=== PATIENT | female | born 1940 | race Caucasian/White ===

== ENCOUNTER 2017-03-27 05:57 | Inpatient (IN) | payer BC, MEDICARE ==
[2017-03-09 13:36] VITALS: BMI 31.4
[2017-03-27] MEDS ORDERED: EPINEPHrine 1:1000 Nasal Sol(30mL) ONE (07:38)
[2017-03-27] MEDS ORDERED: ceFAZolin IV 2 gm in Dextrose 2 GM/50 ML BAG IVPB ONE (07:38)
[2017-03-27] MEDS ORDERED: Rocuronium 10 mg/ml (10 ml) ONE (08:36)
[2017-03-27] MEDS ORDERED: Etomidate 20 mg/10ml Inj IV ONE (08:36)
[2017-03-27] MEDS ORDERED: Phenylephrine 10 mg/ml Inj ONE (08:37)
[2017-03-27] MEDS ORDERED: ceFAZolin IV 1 gm in Dextrose 1 GM/50 ML BAG IVPB ONE (08:39)
[2017-03-27] MEDS ORDERED: Neostigmine Methylsulfate 3mg/3ml Syringe IV ONE (11:46)
[2017-03-27] MEDS ORDERED: HYDROmorphone 0.5 mg/0.5 ml ISec ONE (12:09)
[2017-03-27] MEDS ORDERED: Lactated Ringer's 1,000 ML IV SCH (12:15)
[2017-03-27] MEDS: HYDROmorphone 0.5 mg/0.5 ml ISec IVP PRN ×2 (12:17→12:35)
[2017-03-27] MEDS ORDERED: Bupivacaine HCl 0.25% PF (10 ml) Inj ONE ×2 (12:50)
[2017-03-27] MEDS ORDERED: Lidocaine Hydrochloride 5 ML INJ ONE (12:51)
--- NOTE | 2017-03-27 13:08 | PCM.ANESB1 ---
Interscalene Block - Brachial Plexus Date of Procedure: 03/27/17 Anesthesiologist: francisca Pre-Procedure Diagnosis: right rotator cuff repair Post-Procedure Diagnosis: same Procedure Performed: Interscalene Block of Brachial Plexus Right - Procedure Interscalene Block of Brachial Plexus: This procedure was explained to the patient that it is for post-operative pain management. Consent was obtained after a thorough discussion with the patient regarding the benefits and possible complications of local anesthetic block of the Brachial Plexus at the Interscalene area. The patient was brought to the Operating Room and standard monitors were applied. Time out was held with the circulating nurse to confirm the correct surgery and appropriate block. After applying Oxygen by nasal cannula and administering IV Sedation, the patient's head was gently rotated away from the operative shoulder and the anterior scalene groove was carefully palpated. The ultrasound transducer was then applied to the skin in the transverse plane and the brachial plexus was visualized lateral to the carotid artery and in between the anterior and middle scalene muscles. After identification,the anterior lateral portion of the neck was prepped with Betadine solution three times and Lidocaine 1% was injected subcutaneously for topical analgesia. At this point, a # 22 gauge Stimuplex 2 inches insulated needle was inserted into the interscalene groove and directed in a caudal and midline direction. The needle was inserted lateral to the ultrasound transducer in-plane towards the brachial plexus in a [id number] direction. Needle advancement was performed carefully under direct ultrasound visualization. Nerve stimulator was used and twitched of the affected extremity including the hand brachialis muscles, biceps and the deltoid was obtained at a current of __0.4___MA. After repeated negative aspiration,___5__cc of_0.25%____,___Bupivacaine were injected and this was followed with _25____cc of __0.25___% __bupivacaine__ . Under ultrasound guidance the local anesthetics were observed surrounding the roots of the brachial plexus. The needle was removed intact and sterile dressing was applied. The patient had stable vital signs, was conscious and in no apparent distress. The patient tolerated the interscalene block of the bracheal plexus well with stable vital signs and was prepared for subsequent surgery.
[2017-03-27] MEDS ORDERED: Lactated Ringer's 1,000 ML IV ONE ×3 (13:30→21:30)
--- NOTE | 2017-03-27 17:10 | PCM.SURG1 ---
Surgeon's Initial Post Op Note - Surgeon's Notes Surgeon: Parish Lehman MD Stud Setter: Barry Díaz PA-C Type of Anesthesia: General Endo, Block Regional Pre-Operative Diagnosis: Right shoulder #1 Rotator Cuff Tear (high grade partial tears IS & SS). #2 SLAP tear. #3 Biceps tenosynovits & instability. # 4 SA Bursitis. #5 Subscap partial tear Operative Findings: Right shoulder: #1 Rotator Cuff Tear (partial tears w/ tendonopathy IS/SS, 1.5 cm full thickness tear SS). #2 SLAP tear. #3 Bankart tear w/ anterior instability. #4 Biceps tenosynovits & instability/ partial tear. #5 SA Bursitis. #6 Subscap partial tear. #7 multiple loose bodies. #8 synovitis. #9 chondromalacia humeral head & glenoid Post-Operative Diagnosis: Right shoulder: #1 Rotator Cuff Tear (partial tears w / tendonopathy IS/SS, 1.5 cm full thickness tear SS). #2 SLAP tear. #3 Bankart tear w/ anterior instability. #4 Biceps tenosynovits & instability/ partial tear. #5 SA Bursitis. #6 Subscap partial tear. #7 multiple loose bodies. #8 synovitis. #9 chondromalacia humeral head & glenoid Operation Performed: Right Shoulder: #1 Open Biceps LH Tenodesis. #2 Arthroscopic Rotator Cuff Repair. #3 Arthroscopic SLAP repair. #4 Arthroscopic Bankart repair/ anterior stabilization/ capsulorraphy. #5 Arthroscopic Extensive Debridement. #6 Arthroscopic Subacromial Decompression. #7 Arthroscopic chondroplasty humeral head & glenoid. #8 Arthroscopic removal multiple loose bodies, largest over 3 cm in size through accessory incision. #9 Arthroscopic PRP injection Specimen/Specimens Removed: Specimen= multiple loose bodies, largest greater than 3cm in size. complications= none. Implants= Arthrex #1 4.75 biocomposite swivel Lock anchor and fibertape for RTC repair, #2 2.9 mm biocomposite Push Lock anchor and labral tape for SLAP/Bankart/ anterior stabilization/ capsulorrhaphy repair, #3 7mm biocomposite biceps tenodesis screw for biceps tenodesis Estimated Blood Loss: EBL {In ML}: 10 Blood Products Given: N/A Drains Used: No Drains Post-Op Condition: Good Date of Surgery/Procedure: 03/27/17 Time of Surgery/Procedure: 12:00
[2017-03-27 18:20] VITALS: RESP 20
[2017-03-28] MEDS: Oxycodone/Acetaminophen 5/325 mg Tab PO PRN ×3 (01:03→16:02)
--- NOTE | 2017-03-28 05:35 | OP ---
PROCEDURE DATE: 03/27/2017 PREOPERATIVE DIAGNOSES: 1 . Right shoulder rotator cuff tear (high grade partial tears of infraspinatus and supraspinatus). 2. Superior labrum anterior and posterior labral tear. 3. Biceps tenosynovitis and instability. 4. Subacromial bursitis. 5. Subscapularis partial tear. POSTOPERATIVE DIAGNOSES: 1 . Right shoulder rotator cuff tear (partial tears and tendinopathy of infraspinatus and supraspinatus, 1.5 cm full thickness tear of supraspinatus). 2. Superior labrum anterior and posterior tear complex starting at the 10 o'clock position extending to the 3 o'clock position. 3. Bankart tear with anterior instability (attenuated anterior capsule with subluxation of anterior inferior of humeral head , Bankart labral tear starting at 3 o'clock position extending down to the 6 o'clock position at the anterior inferior labrum). 4. Biceps tenosynovitis and instability with high-grade partial tearing. 5. Subacromial bursitis and impingement. 6. Subscapularis partial tear. 7. Multiple loose bodies (largest of the loose bodies measuring greater than 3 cm in width). 8. Extensive synovitis. 9. Chondromalacia of humeral head and glenoid. PROCEDURES: 1. Right shoulder open biceps long head tendon tenodesis. 2. Arthroscopic rotator cuff repair. 3. Arthroscopic superior labrum anterior and posterior repair. 4. Arthroscopic Bankart repair/anterior stabilization/capsulorrhaphy. 5. Arthroscopic extensive debridement. 6. Arthroscopic subacromial decompression with acromioplasty. 7. Arthroscopic chondroplasty of the humeral head and glenoid. 8. Arthroscopic removal of loose bodies, largest loose body measuring over 3 cm in size, removed through accessory incision. 9. Arthroscopic PRP injection. SURGEON: Parish Lehman MD MATH INTERVENTIONIST: Colleen Díaz PA-C. JUSTIFICATION FOR MATH INTERVENTIONIST: Colleen Díaz is a certified physician chiropractor assistant, whose presence was an absolute necessity for successful completion of the procedure as she provided skilled surgical assistance with positioning of patient, positioning of extremity, management of surgical field, retraction of neurovascular structures, preparation of glenoid including drilling and passage of suture and placement of fixation anchors for superior labrum anterior and posterior repair, passage of suture and placements of anchors and glenoid for fixation of capsulorrhaphy/Bankart repair, passage of suture of preparation of humeral head for placement of anchors for rotator cuff repair, management of arthroscopic equipments for extensive debridement/synovectomy/chondroplasty and subacromial decompression with acromioplasty, retraction of neurovascular structures and preparation of proximal humerus shaft for biceps tenodesis as well as surgical dissection and retrieving biceps tendon as well as proximal biceps tendon preparation, placement of suture, and placement of biceps tenodesis screw and tenodesis fixation, wound closure, placement and fitting of shoulder immobilizer sling. Colleen Díaz was present for the entire case, was an absolute necessity for successful completion of the procedure. SPECIMENS: Multiple loose bodies, sent to pathology with largest loose body measuring greater than 3 cm in size. COMPLICATIONS: None. IMPLANTS: 1. Arthrex 4.75-mm BioComposite and FiberTape rotator cuff repair. 2. Arthrex 2.9-mm BioComposite PushLock anchors in labrum for superior labrum anterior and posterior repair/Bankart repair/anterior stabilization/capsulorrhaphy repair. 3. Arthrex 7-mm BioComposite biceps tenodesis screw for biceps tenodesis. ESTIMATED BLOOD LOSS: 10 mL. DRAINS: None. COMPLICATIONS: None. DISPOSITION: The patient was extubated and transferred to PACU in stable condition and tolerated procedure well. INDICATIONS FOR SURGERY: The patient is a 77-year-old female with past medical history significant for hypertension, hypercholesterolemia, diabetes, coronary artery disease, who presented to the office under my care back in 10/05/2014 for other orthopedic complaints on her followup visit on the office on 09/22/2016. She presented with new onset/acute right shoulder pain that began two months previously. X-rays taken in the office did not show obvious signs of significant degenerative joint disease with good overall alignment and mild signs of impingement. She underwent cortisone mixture injections to the bicipital groove and subacromial space on 09/22/2016 in the office, which resulted in near complete resolution of her pain immediately. She was referred to physical therapy and referred to get an MR arthrogram of the right shoulder. She was compliant with physical therapy, antiinflammatory medication in the form of Mobic, antiinflammatory cream/compound pain cream. Right shoulder MR arthrogram done at [facility] on 10/22/2016 was read as: 1. Full thickness/partial with tear of the supraspinatus tendon measuring 1 cm in width with diffuse tendinosis and sprain of the remainder of the tendon. 2. High grade partial tear of the infraspinatus tendon. 3. Partial tear of the subscapularis tendon. 4. Tear of the superior labrum from 10 o'clock to 1 o'clock positions. On my review of the MR arthrogram, I know that there was significant signal change especially at the intraarticular portion of the biceps tendon as well as the biceps tendon within the groove. I also noted that there was significant labral signal changes on the MR arthrogram at the anterior inferior labrum as well as the superior labrum anterior and posterior region. On her followup in the office, she stated that she was progressing well with physical therapy and the initial injection was providing her with some good pain relief. She continued with physical therapy and followed up in the office on 02/03/2017. At that point in time, the pain had returned significantly at the right shoulder with significant dysfunction, pain at night, inability to perform any overhead activity and overall a significant negative impact on her quality of life. She underwent cortisone mixture injection once again in the office on 02/03/2017 to the bicipital groove and subacromial space with near complete resolution of her pain once again in the office. She continued with physical therapy and on that day, she started to discuss possible surgical intervention. She followed up in the office on 03/19/2017 for her preoperative discussion and to discuss surgery in detail. At her previous visit, she has already been indicated for right shoulder arthroscopic rotator cuff repair/superior labrum anterior and posterior repair, possible capsulorrhaphy or Bankart repair, biceps tenodesis, extensive debridement, subacromial decompression, and all related indicated procedures including platelet rich plasma injection. She watched surgical animation videos and diagnosis animation videos and stated that she had a good understanding of her diagnosis as well as the procedure to be done. I spent a long time discussing the risks, benefits, and alternatives of the procedure with the risks including but not limited to infection, neurovascular damage, need for further surgery, failure of repair, failure implants, advanced chondrolysis and degenerative wear, development of chronic pain and disability, development of stiffness, development of blood clots including DVT and PE, inability to return to presurgery levels of activity, anesthesia reactions, cardiopulmonary complications. After answering all of her questions, she stated that she understood the risks and wished to proceed with surgery. I reviewed with length with her the need for compliance with the postoperative rehab protocol and she stated that she understood the need for compliance and would adhere to the program to maximize the chances of her having a successful outcome after surgery. She was referred to her primary care physician and nuclear medicine technician and obtained both cardiac and medical clearance and the procedure was scheduled on 03/27/2017 at [facility] (Formerly [facility]). PROCEDURE IN DETAIL : The patient was identified in the preoperative holding area and the right shoulder was marked for surgery. Once again, as described above, the risks, benefits, and alternatives of the procedure were discussed at length with the patient and informed consent was obtained. After a brief discussion with the Anesthesia staff, perioperative IV antibiotics in the form of 2 g Ancef was administered and the patient was taken to the operating room and placed in a well-padded operating room table with all bony prominences and superficial neurovascular structures well-padded. The operating room table had the beach chair position or in the supine position. An initial time-out was done with the surgeon, anesthesia staff, and OR staff, and all are in agreement with the patient, procedure to be done and extremity to be operated on. General anesthesia was administered without difficulty or complication. Examination under anesthesia was then carried out. Right shoulder with full range of motion compared to contralateral arm, there was some subacromial crepitus, there was significant sulcus sign and anterior inferior instability especially with external rotation and abduction, the biceps tendon was palpated to be dislocating out of the bicipital groove as well. Skin is intact, no swelling, no warmth, no erythema. Continuation of procedure with the help of anesthesia staff, monitoring hemodynamic status. The patient was slowly brought into the upright position on the beach chair position while monitoring her blood pressure and heart rate to determine that she can tolerate the upright position at 45 degrees and then finally in the full upright position. After anesthesia staff confirmed that she was hemodynamically stable, we proceeded with prepping and draping of the right shoulder after her head and neck alignment was confirmed to be in neutral position to the satisfaction of anesthesia staff and she was secured to the beach chair position. Once the right upper extremity was prepped and draped in standard sterile fashion and connected to the spider extremity bernard, a final time-out was done with the surgeon, anesthesia staff, and OR staff, and all are in agreement with the patient, procedure to be done and extremity to be operated on. Posterior portal was created with stab incision to skin down to the subcutaneous tissue down to the level of the capsule after the glenohumeral joint was insufflated with 50 mL of normal saline. Blunt arthroscopic trocar and cannula were inserted into the glenohumeral joint. Insufflation with arthroscopic fluids was begun and the arthroscopic camera was inserted into the glenohumeral joint. With the use of spinal needle localization, the anterior superior portal was identified at the rotator interval and created with stab incision through skin down to subcutaneous tissue down to the level of the capsule. An accessory cannula was inserted and the joint was copiously irrigated for better visualization and removal of debris. Diagnostic arthroscopy was then carried out with the use of an arthroscopic probe. Attention was first turned towards the axillary pouch, where there was significant loose bodies that appeared to be displaced chondral fragments with the largest fragment measuring over 3 cm. Loose bodies totalled approximately eight in total, but could have been more. Attention was then turned towards the anterior shoulder where the subscapularis tendon exhibited partial tearing at the superior and anterior aspect that was not full thickness, but explained the biceps instability. There was significant synovitis and hypertrophic synovium lining the anterior and superior glenohumeral joint as well as the inferior axillary pouch. Attention then turned towards the biceps tendon that it appears to have high grade complex partial tearing close to the bicipital anchor with about 40 to 30% of the fibers actually intact. The biceps tendon also appeared to be unstable and subluxed anteriorly and not moving in continuity with external and internal rotation of the humeral head under anesthesia. Attention was then turned towards the labrum, where indeed, there was a complex type II superior labrum anterior and posterior tear extending from the 10 o'clock position to the 3 o'clock position, displaced completely from the glenoid rim. The biceps anchor was also displaced. At the anterior inferior aspect in the Bankart area from the 3 o'clock to 6 o'clock position, the labrum was also torn and displaced from the glenoid rim and detached. There was a positive drive through sign in the anterior and inferior subluxation of the humeral was evident. As we looked with the arthroscopic camera at the anterior aspect of the shoulder joint, there appeared to be attenuation and outpouching of the anterior capsule indicating significant anterior instability. We then evaluated the rotator cuff, which have had significant partial tearing and tendinopathy throughout most of the infraspinatus and supraspinatus, but at the anterior aspect of the supraspinatus, there is insertion of the greater tuberosity that did appear to be a full-thickness component with some remnant fibers holding on that measured approximately 1.5 cm in total width. Continuation of procedure with the use of arthroscopic shaver and radiofrequency ablation, an extensive debridement and synovectomy was carried out while maintaining good hemostasis. The complex tearing of the flap tear and Bankart tear were debrided down to a stable rim and indeed the tissue was of good enough quality for repair. With the use of a scissor and biceps tenotomy was carried out releasing the biceps tendon in its completion and then completed wit the arthroscopic shaver and radiofrequency ablation. Synovectomy was also completed inferiorly with good hemostasis achieved. With the use of graspers and the arthroscopic shaver, we are able to remove nearly all of the loose bodies, except for the rather large 3 cm loose body. After completion of all the intraarticular parts of the procedure through an accessory incision, we are able to remove the 3 cm loose body in its entirety and it was sent to pathology. As stated above, there was copious amounts of loose bodies all representing displaced chondral fragments. The humeral head and the glenoid displayed are grade 1 to 2 chondromalacia with displaced chondral fragments globally throughout the articulating surfaces above the humeral head and glenoid. With the use of an Arthrex suture passer, after the tissue was elevated and freed from the glenoid completely, we are able to start working on the anterior stabilization/capsulorrhaphy. The suture was passed through the redundant anterior capsule and inferior glenohumeral ligament, tightening up the anterior capsule, incorporating the labrum and the wire was advanced well passing the labral tap around the anterior inferior labrum at approximately 5 o'clock to 6 o'clock position as well as the anterior capsule. Optimal positioning where the inferior anchor was drilled with the guide and a 2.9-mm BioComposite PushLock anchors with the suture pass through it with not less fixation, was impacted with good soft tissue tendon maintained closing up the anterior space performing and completing a capsulorrhaphy as well as anterior stabilization and repair of the Bankart labral tear. The steps were repeated again tightening up the anterior inferior aspect and incorporating the inferior glenohumeral ligament into the stabilization procedure done arthroscopically at the 3 o'clock/4 o'clock position. The end product after placing these two anchors was a significantly stabilized glenohumeral joints with the humeral head centered on the glenoid after placement of the two anchors and stabilization and capsulorrhaphy of the attenuated anterior capsule and Bankart repair. The flap tear was complex, but did have some remnant good labral tissue at the 1 o'clock position that appeared to be a potential area of pain generator and impingement. Decision was made to perform a superior labrum anterior and posterior at this location and the Arthrex suture passer was used to pass the 9-0 wire around the labrum with placement of a 2.9 mm Biocomposite PushLock anchor with knotless fixation of the labral tape at the 1 o'clock position stabilizing the superior labrum anterior and posterior tear and reducing it back to the glenoid rim. At that point in time, all of the intraarticular portions of the procedure were completed and attention was then turned towards the subacromial space. Of note, an anterior inferior portal was created to facilitate successful Bankart repair/anterior stabilization/ capsulorrhaphy/ superior labrum anterior and posterior repair. Attention then turned towards the subacromial space and the camera was inserted into the subacromial space. With the use of arthroscopic shaver and radiofrequency ablation, the subacromial decompression and acromioplasty was carried out successfully opening up and removing all the inflamed tissue in the subacromial space. She has significant bursitis and inflamed tissue overlying the rotator cuff and underneath the acromion. There was some mild signs of impingements and the opposing pieces of acromion where shaved down. One good hemostasis was achieved with use of a blunt instrument, the rotator cuff was examined. A PDS suture had been placed at the area of suspected full thickness tearing as stated before at the anterior aspect of the supraspinatus where there was some remnant intact fibers. At the location of the PDS suture, there indeed was a thin raquel of intact fibers that were easily debrided and we can see the intraarticular path into the glenohumeral joint through the 1.5 cm supraspinatus tear. Decision was made to proceed with the arthroscopic rotator cuff repair. With the use of the Arthrex Scorpion, two FiberTape sutures were placed at the anterior and posterior aspects of the tear at the apex. A single row repair was carried out with placement of SwiveLock 4.75 BioComposite anchors at the footprints of the supraspinatus. Tap was used to create the hole and knotless fixation was used as the limbs of the FiberTape pass through the SwiveLock anchor and the anchor was fixed into position while maintaining good tendon on the sutures. This resulted in a stable single row rotator cuff repair. The shoulder was taken through multiple external and internal rotation positions to confirm that it moved as a unit and we were happy with our construct. Final bursectomy and debridement was carried out with use arthroscopy shaver and radiofrequency ablation and good hemostasis was achieved. All arthroscopic fluid was removed and with the help of anesthesia staff, 10 mL of platelet rich plasma had been obtained and spun down through a peripheral stick. A 5 mL was injected subacromial to help with the rotator cuff repair and 5 mL was injected into the glenohumeral joint to aid with the labral repair and anterior stabilization. Of note, we did take another look at the glenohumeral joint after the rotator cuff repair was successfully completed and indeed the roof of the rotator cuff did close down and it was evident that the area of high-grade partial tearing seen from an intraarticular position was indeed the full thickness component visualized from the subacromial space and was successfully repaired. Once the platelet rich plasma was injected, all the arthroscopic portals are reapproximated with 2-0 Vicryl sutures with deep tissue followed by 3-0 Monocryl suture through skin. All in all, there were five portals used with two accessory anterior portals used for the superior labrum anterior and posterior and Bankart/anterior stabilization/capsulorrhaphy repair. Two accessory lateral portals were created for the rotator cuff repair. Once the portals were reapproximated, attention was then turned towards the biceps tenodesis. A 3 cm incision was made just distal to the level of the pectoralis major tendon. Incision made to skin down subcutaneous tissue while maintaining good hemostasis down to the level of the deltopectoral fascia. Deltopectoral fascia was sharply incised and blunt dissection was carried out with digit palpation and the tenotomy, long head biceps tendon was identified and brought into the surgical field. The diseased tissue/tendinopathy and tenosynovitis tissue were debrided and resected. The proximal 2 cm of the tendon were prepared with whipstitch fashion. Good tensioning was determined as well when determining the level of the suture placements with the elbow at flexion. Guidewire was used and placed through the near cortex and far cortex of the sub-pectoralis position on the proximal humerus. Overlying soft tissue was debrided and the cannulated 7-mm reamer was drill was passed over the guidewire and only drilled the near cortex. One limb of the whipstitch through the biceps tendon was passed through a 7-mm BioComposite biceps tenodesis screw from Arthrex. The screw and the biceps tendon were docked into the tenodesis hole successfully with good fixation achieved. A free needle was used to pass one end of the suture through the body of the tendon itself and sewn to each other as backup fixation. Wound was copiously irrigated and all bony fragments were removed. Good hemostasis was achieved. Wound was reapproximated with #1 Vicryl suture for deep tissue followed by 2-0 Vicryl suture for subcutaneous tissue followed by 3-0 Monocryl suture for skin. Sterile dressings were applied and then the right upper extremity was placed in the shoulder immobilizer sling provided by my office. Once the patient was fitted and placed in the sling, she was brought into the supine position and transferred to a stretcher where she was extubated from general anesthesia and tolerated the procedure well. DISPOSITION: The patient was transferred to PACU in stable condition having tolerated the procedure well. She was instructed to keep the shoulder immobilizer on at all times. She was instructed to keep the dressings clean, dry, and intact. She was instructed to be strict nonweightbearing to the right upper extremity. She has been given a prescription for Percocet for pain control. She will contact me directly without any questions or concerns. She will be discharged home when she is recovered from anesthesia. She will follow up with my office within one week and already has her postoperative appointment set up. Parish Lehman MD
[2017-03-28] MEDS ORDERED: Levothyroxine 50 MCG TAB PO SCH (06:30)
[2017-03-28 07:14] LABS: HEMOGLOBIN 10.1 g/dL (11.0-16.0); MEAN CORPUSCULAR HEMOGLOBIN 29.2 pg (27.0-31.0); MEAN CORPUSCULAR HGB CONC 33.6 g/dL (33.0-37.0); MEAN PLATELET VOLUME 9.8 fL (7.2-11.7); RBC 3.44 Mil/uL (3.80-5.20); RED CELL DISTRIBUTION WIDTH 13.9 % (11.5-14.5); WHITE BLOOD COUNT 7.7 K/uL (4.8-10.8)
[2017-03-28 07:28] LABS: BLOOD UREA NITROGEN 12 mg/dL (7-17); CALCIUM 7.9 mg/dl (8.6-10.4); GFR AFRICAN-AMERICAN > 60; GFR NON-AFRICAN AMERICAN > 60
[2017-03-28 08:55] VITALS: BP 107/56; PULSE 89; TEMP 98.3; O2SAT 97
[2017-03-28] MEDS ORDERED: Pantoprazole 40 mg EC Tab PO SCH (10:00)
[2017-03-28] MEDS ORDERED: Potassium Chloride 20 mEq ER Tab PO STA (11:32)
--- NOTE | 2017-03-28 11:55 | CP.PCM.PN ---
Subjective - Date & Time of Evaluation Date of Evaluation: 03/28/17 Time of Evaluation: 10:35 - Subjective Subjective: Patient seen today with Dr. Louie davis , c/o r shoulder pain , improved with pain medication , no other complaints s/p R shoulder rotator cuff repair POD#[address] Batres, patient can be discharged home today and f/u with Dr. Oropeza office on Thursday at 10 30 am Objective - Vital Signs/Intake and Output Vital Signs (last 24 hours): Temp Pulse Resp BP Pulse Ox 98.3 F 89 20 107/56 L 97 03/28/17 08:51 03/28/17 08:51 03/28/17 08:51 03/28/17 08:51 03/28/17 08:51 Intake and Output: 03/28/17 03/28/17 06:59 18:59 Output Total 200 Balance -200 - Medications Medications: Current Medications Atenolol (Tenormin) 50 mg PO DAILY [facility] Last Admin: 03/28/17 10:39 Dose: Not Given Chlorthalidone (Hygroton) 25 mg PO DAILY [facility] Last Admin: 03/28/17 10:36 Dose: Not Given Famotidine (Pepcid) 20 mg PO DAILY [facility] Last Admin: 03/28/17 10:36 Dose: 20 mg Levothyroxine Sodium (Synthroid) 50 mcg PO DAILY@0630 [facility] Last Admin: 03/28/17 05:56 Dose: 50 mcg Losartan Potassium (Cozaar) 100 mg PO DAILY [facility] Last Admin: 03/28/17 10:39 Dose: Not Given Metformin HCl (Glucophage) 500 mg PO DAILY [facility] Last Admin: 03/28/17 10:35 Dose: 500 mg Ondansetron HCl (Zofran Inj) 4 mg IVP Q8 PRN PRN Reason: Nausea/Vomiting Oxycodone/Acetaminophen (Percocet 5/325 Mg Tab) 2 tab PO Q4H PRN PRN Reason: Pain, moderate (4-7) Stop: 03/30/17 20:30 Last Admin: 03/28/17 10:37 Dose: 2 tab Pantoprazole Sodium (Protonix Ec Tab) 40 mg PO DAILY [facility] Last Admin: 03/28/17 10:36 Dose: 40 mg Potassium Chloride (K-Dur 20 Meq Er Tab) 20 meq PO ONCE ONE Stop: 03/28/17 16:01 - Labs Labs: 03/28/17 06:50 03/28/17 06:50
[2017-03-28] MEDS ORDERED: Potassium Chloride 20 mEq ER Tab PO SCH (16:00)
[2017-03-28] MEDS ORDERED: Potassium Chloride 20 mEq ER Tab PO ONE (16:00)
== END 2017-03-28 17:16 | disposition home or self-care (01) | DRG 502 ==
LOC: C.SDS 05:57 → C.9P 20:25 → C.6T 20:25
PROVIDERS: ADMIT Internal Medicine Pulmonary Disease; ATTEND Internal Medicine Pulmonary Disease
PROC: 0RQJ4ZZ Repair Right Shoulder Joint, Percutaneous Endoscopic Approach (ICD-10-PCS; 2017-03-27)
PROC: 0LM14ZZ Reattachment of Right Shoulder Tendon, Percutaneous Endoscopic Approach (ICD-10-PCS; 2017-03-27)
PROC: 0RNJ4ZZ Release Right Shoulder Joint, Percutaneous Endoscopic Approach (ICD-10-PCS; 2017-03-27)
PROC: 3E0T3BZ Introduction of Anesthetic Agent into Peripheral Nerves and Plexi, Percutaneous Approach (ICD-10-PCS; 2017-03-27)
PROC: 0LS30ZZ Reposition Right Upper Arm Tendon, Open Approach (ICD-10-PCS; principal; 2017-03-27 07:45)
PROC: 0LQ14ZZ Repair Right Shoulder Tendon, Percutaneous Endoscopic Approach (ICD-10-PCS; 2017-03-27 07:45)
DX: M75.101 Unspecified rotator cuff tear or rupture of right shoulder, not specified as traumatic (principal); S43.431S Superior glenoid labrum lesion of right shoulder, sequela; M24.011 Loose body in right shoulder; M65.811 Other synovitis and tenosynovitis, right shoulder; M75.21 Bicipital tendinitis, right shoulder; M94.211 Chondromalacia, right shoulder; I10 Essential (primary) hypertension; I25.10 Atherosclerotic heart disease of native coronary artery without angina pectoris; E11.9 Type 2 diabetes mellitus without complications; E78.00 Pure hypercholesterolemia, unspecified

== ENCOUNTER 2017-06-04 09:59 | Emergency (ER) | payer BC, MEDICARE ==
[2017-06-04 09:59] VITALS: BMI 31.4
[2017-06-04] MEDS ORDERED: Sodium Chloride 0.9% 500 ML IV ONE ×2 (10:43→11:13)
[2017-06-04 11:24] LABS: BASO % 0.5 % (0.0-2.0); EOS # 0.2 K/uL (0.0-0.7); EOS % 2.9 % (0.0-4.0); HEMOGLOBIN 11.5 g/dL (11.0-16.0); LYMPH # 1.9 K/uL (1.0-4.3); LYMPH % 26.7 % (20.0-40.0); MEAN CELL VOLUME 86.8 fL (81.0-99.0); MEAN CORPUSCULAR HEMOGLOBIN 29.5 pg (27.0-31.0); MONO # 0.8 K/uL (0.0-0.8); MONO % 11.4 % (0.0-10.0); NEUT # 4.1 K/uL (1.8-7.0); NEUT % 58.5 % (50.0-75.0); RBC 3.9 Mil/uL (3.80-5.20); RED CELL DISTRIBUTION WIDTH 14.2 % (11.5-14.5)
[2017-06-04 11:39] LABS: ALBUMIN 3.8 g/dL (3.5-5.0); ALT/SGPT 18 U/L (9-52); AST/SGOT 31 U/L (14-36); BLOOD UREA NITROGEN 19 mg/dL (7-17); CALCIUM 8.8 mg/dl (8.6-10.4); GFR AFRICAN-AMERICAN > 60; GFR NON-AFRICAN AMERICAN > 60
[2017-06-04 12:41] LABS: URINE BILIRUBIN NEGATIVE (NEGATIVE); URINE CLARITY Clear (Clear); URINE COLOR YELLOW (YELLOW); URINE GLUCOSE (UA) NEGATIVE (Normal)
[2017-06-04 12:42] LABS: SQUAMOUS EPITHIAL 2 /hpf (0-5); URINE BLOOD NEGATIVE (NEGATIVE); URINE LEUKOCYTE ESTERASE NEGATIVE Leu/uL (Negative); URINE PROTEIN NEGATIVE (NEGATIVE); URINE UROBILINOGEN 0.2 mg/dL (0.2-1.0)
[2017-06-04 13:04] LABS: INR 1.1; PROTHROMBIN TIME 12.6 SECONDS (9.7-12.2)
--- NOTE | 2017-06-04 13:54 | RAD ---
Chest x-ray single frontal view History: Right-sided chest pain. Comparison: 03/09/2017 Findings: Biapical pleural thickening with upper lobe granulomatous changes. Mild venous congestion. Right hilar prominence. Tortuous aorta. Diffuse increased interstitial lung markings. Degenerative changes in the spine and shoulders. Surgical clips in the right upper abdomen. Impression: Biapical pleural thickening with upper lobe granulomatous changes. Mild venous congestion. Right hilar prominence. Tortuous aorta. Diffuse increased interstitial lung markings.
--- NOTE | 2017-06-04 14:34 | C.PDOC ---
History Of Present Illness 77 y/o female presents to the ER complaining of pain to the right breast which has been present for the past 3 days. Patient states that she had surgery on the right shoulder. Patient reports that she has pain with movement. She notes that she has pain in her right shoulder. She states that her pain makes her light-headed and she took Tramadol which made her light-headed. Patient denies having SOB, mid- chest pain, abdominal pain, and vomiting. Time Seen by Provider: 06/04/17 10:10 Chief Complaint (Nursing): Dizziness/Lightheaded History Per: Patient History/Exam Limitations: no limitations Onset/Duration Of Symptoms: Days Current Symptoms Are (Timing): Still Present Severity: Moderate Past Medical History Reviewed: Historical Data, Nursing Documentation, Vital Signs Vital Signs: Last Vital Signs Temp 98.5 F 06/04/17 17:26 Pulse 89 06/04/17 17:26 Resp 16 06/04/17 17:26 BP 107/83 06/04/17 17:26 Pulse Ox 97 06/04/17 18:42 - Medical History PMH: Anemia, Colonic Polyps, Diabetes, Diverticulitis, Gall Bladder Disease, HTN , Hypercholesterolemia, Hypothyroidism Surgical History: Cholecystectomy - [facility] Procedures ANGIOPLASTY OF OTHER NON-CORONARY VESSEL(S) (01/09/14) ATHERECTOMY OF OTHER NON-CORONARY VESSEL(S) (01/09/14) CONTRAST AORTOGRAM (01/09/14) CONTRAST ARTERIOGRAM-LEG (01/09/14) INSEJ [id number] PERIPHERAL NON-CORONARY VES STENT(S) (01/09/14) INSERTION OF ONE VASCULAR STENT (01/09/14) INTRODUCE LOCAL ANESTH IN PERIPH NRV, PLEXI, PERC (03/27/17) PROCEDURE ON SINGLE VESSEL (01/09/14) REATTACHMENT OF RIGHT SHOULDER TENDON, PERC ENDO APPROACH (03/27/17) RELEASE RIGHT SHOULDER JOINT, PERC ENDO APPROACH (03/27/17) REPAIR RIGHT SHOULDER JOINT, PERC ENDO APPROACH (03/27/17) REPAIR RIGHT SHOULDER TENDON, PERC ENDO APPROACH (03/27/17) REPOSITION RIGHT UPPER ARM TENDON, OPEN APPROACH (03/27/17) Family History: States: No Known Family Hx - Social History Hx Tobacco Use: No Hx Alcohol Use: No Hx Substance Use: No - Immunization History Hx Tetanus Toxoid Vaccination: Yes Hx Influenza Vaccination: No Hx Pneumococcal Vaccination: Yes Review Of Systems Except As Marked, All Systems Reviewed And Found Negative. Constitutional: Negative for: Fever, Chills Cardiovascular: Negative for: Chest Pain Respiratory: Negative for: Shortness of Breath Gastrointestinal: Negative for: Vomiting, Abdominal Pain Musculoskeletal: Positive for: Other (pain to right breast) Physical Exam - Physical Exam Appears: Non-toxic, No Acute Distress Skin: Normal Color, Warm Head: Atraumatic, Normacephalic Eye(s): bilateral: Normal Inspection Nose: Normal Oral Mucosa: Moist Neck: Supple Chest: Symmetrical, Tenderness (tenderness to lateral side of right breast) Cardiovascular: Rhythm Regular Respiratory: Normal Breath Sounds, No Rales, No Rhonchi, No Wheezing Extremity: Tenderness (tenderness to anterior aspect of right shoulder), Other ( post-operative scars on right shoulder) Neurological/Psych: Oriented x3, Normal Speech ED Course And Treatment - Laboratory Results Result Diagrams: 06/04/17 11:20 06/04/17 11:20 O2 Sat by Pulse Oximetry: 97 (RA) Pulse Ox Interpretation: Normal - Other Rad CXR X-Ray: Viewed By Me, Read By Radiologist Interpretation: Chest x-ray single frontal view. History: Right-sided chest pain. Comparison: 03/09/2017. Findings: Biapical pleural thickening with upper lobe granulomatous changes. Mild venous congestion. Right hilar prominence. Tortuous aorta. Diffuse increased interstitial lung markings. Degenerative changes in the spine and shoulders. Surgical clips in the right upper abdomen. Impression: Biapical pleural thickening with upper lobe granulomatous changes. Mild venous congestion. Right hilar prominence. Tortuous aorta. Diffuse increased interstitial lung markings. - CT Scan/US CT- Chest Other Rad Studies (CT/US): Read By Radiologist, Radiology Report Reviewed CT/US Interpretation: PROCEDURE: CTA chest dated 06/04/2017. HISTORY: Right- sided chest pain with elevated D-dimer. COMPARISON: Comparison made with chest radiograph dated 06/04/2017 at 10:53 a.m.. . Correlation also made with prior CT scan abdomen pelvis 07/19/2013 which image the lower thorax. TECHNIQUE : Axial computed tomography images were obtained of the chest in the pulmonary arterial phase of enhancement. Coronal and sagittal reformatted images were created and reviewed. Intravenous contrast dose: 100 cc Visipaque 320. Radiation dose: Total exam DLP = 555.18 mGy-cm. This CT exam was performed using one or more of the following dose reduction techniques: Automated exposure control, adjustment of the mA and/or kV according to patient size, and/ or use of iterative reconstruction technique. FINDINGS: PULMONARY ARTERIES: The visualized portions of the pulmonary trunk, right and left main, lobar, segmental and proximal subsegmental branches of the pulmonary arteries are well opacified with no definitive filling defects seen to suggest acute pulmonary embolus. Pulmonary trunk measures approximately 2.24 cm. AORTA: No acute findings. No thoracic aortic aneurysm. Ascending thoracic aorta measures approximately 2.8 cm and descending thoracic aorta measures approximately 2.1 cm. Minor on atherosclerotic plaque seen along thoracic aorta. Three-vessel arch. LUNGS: Mild passive/dependent type atelectasis seen in both posterior lung monahan on more pronounced in the lower lobes. There are some minor scarring changes in the left lateral lung base/ lingular region. There also appears to be some minimal biapical pleural thickening. No evidence of parenchymal masses or obvious nodules. PLEURAL SPACES: Unremarkable. No effusion or pneumothorax. HEART: Heart size is upper limits of normal/ borderline enlarged. No significant pericardial effusion. . No significant pericardial effusion. LYMPH NODES: Few small nonspecific mediastinal lymph nodes are present. Central airways are midline and patent. No large central endoluminal lesions. There is a small hiatal hernia with wall thickening of the distal esophagus likely due to protrusion gastric mucosa. Possibility of esophagitis or other intrinsic/invasive wall lesion not excluded. Clinical correlation recommended. BONES, CHEST WALL: Minor multilevel degenerative spondylosis of the thoracic spine. There are no acute compression fractures nor retropulsed fragments. No suspicious lytic or blastic lesions are identified. OTHER FINDINGS: Changes of cholecystectomy again noted. IMPRESSION: No evidence of acute central pulmonary embolus. Minor passive/ dependent type atelectasis as above with what appears represent some minor scarring in the left lateral lung base/lingular region. . Minimal biapical pleural thickening. Progress Note: Labs, CXR, and CT-Angio Chest PE ordered. Patient given IV Fluids and Toradol IV. On re-evaluation patient feels better and is stable to be d/c home with PMD follow up. Disposition - Disposition Disposition: HOME/ ROUTINE Disposition Time: 17:39 Condition: STABLE Additional Instructions: Follow up with your PMD within 1-2 days. Return to ED if feel worse. Prescriptions: Lidocaine 5% [Lidoderm] 1 patch TP DAILY #30 patch Ibuprofen [Motrin Tab] 400 mg PO Q8 #30 tab Instructions: Mastalgia (DC) Forms: [facility] (French) - Clinical Impression Clinical Impression: Pain of breast - PA / [employer] / Resident Statement MD/DO has reviewed & agrees with the documentation as recorded. - Scribe Statement The provider has reviewed the documentation as recorded by the Kari Suazo Provider Attestation All medical record entries made by the Krisibpranay were at my direction and personally dictated by me. I have reviewed the chart and agree that the record accurately reflects my personal performance of the history, physical exam, medical decision making, and the department course for this patient. I have also personally directed, reviewed, and agree with the discharge instructions and disposition.
[2017-06-04] MEDS ORDERED: Iodixanol 320 MG/ML 100 ML BOTTLE IV ONE (14:44)
--- NOTE | 2017-06-04 16:50 | CT ---
PROCEDURE: CTA chest dated 06/04/2017. HISTORY: Right-sided chest pain with elevated D-dimer. COMPARISON: Comparison made with chest radiograph dated 06/04/2017 at 10:53 a.m.. . Correlation also made with prior CT scan abdomen pelvis 07/19/2013 which image the lower thorax. TECHNIQUE: Axial computed tomography images were obtained of the chest in the pulmonary arterial phase of enhancement. Coronal and sagittal reformatted images were created and reviewed. Intravenous contrast dose: 100 cc Visipaque 320 Radiation dose: Total exam DLP = 555.18 mGy-cm. This CT exam was performed using one or more of the following dose reduction techniques: Automated exposure control, adjustment of the mA and/or kV according to patient size, and/or use of iterative reconstruction technique. FINDINGS: PULMONARY ARTERIES: The visualized portions of the pulmonary trunk, right and left main, lobar, segmental and proximal subsegmental branches of the pulmonary arteries are well opacified with no definitive filling defects seen to suggest acute pulmonary embolus. Pulmonary trunk measures approximately 2.24 cm. AORTA: No acute findings. No thoracic aortic aneurysm. Ascending thoracic aorta measures approximately 2.8 cm and descending thoracic aorta measures approximately 2.1 cm. Minor on atherosclerotic plaque seen along thoracic aorta. Three-vessel arch. LUNGS: Mild passive/dependent type atelectasis seen in both posterior lung monahan on more pronounced in the lower lobes. There are some minor scarring changes in the left lateral lung base/ lingular region. There also appears to be some minimal biapical pleural thickening. No evidence of parenchymal masses or obvious nodules. PLEURAL SPACES: Unremarkable. No effusion or pneumothorax. HEART: Heart size is upper limits of normal/ borderline enlarged. No significant pericardial effusion. . No significant pericardial effusion. LYMPH NODES: Few small nonspecific mediastinal lymph nodes are present. Central airways are midline and patent. No large central endoluminal lesions. There is a small hiatal hernia with wall thickening of the distal esophagus likely due to protrusion gastric mucosa. Possibility of esophagitis or other intrinsic/invasive wall lesion not excluded. Clinical correlation recommended BONES, CHEST WALL: Minor multilevel degenerative spondylosis of the thoracic spine. There are no acute compression fractures nor retropulsed fragments. No suspicious lytic or blastic lesions are identified OTHER FINDINGS: Changes of cholecystectomy again noted. IMPRESSION: No evidence of acute central pulmonary embolus. Minor passive/dependent type atelectasis as above with what appears represent some minor scarring in the left lateral lung base/lingular region. . Minimal biapical pleural thickening.
[2017-06-04 17:27] VITALS: BP 107/83; PULSE 89; RESP 16; TEMP 98.5
[2017-06-04 17:42] VITALS: O2SAT 97
== END 2017-06-04 17:55 | disposition home or self-care (01) ==
LOC: C.ER 09:59
DX: N64.4 Mastodynia (principal); I10 Essential (primary) hypertension; E78.00 Pure hypercholesterolemia, unspecified; E11.9 Type 2 diabetes mellitus without complications; E03.9 Hypothyroidism, unspecified
CPT/HCPCS: 71045; 71275; 80053; 81001; 82550; 82553; 82948; 84484; 85025; 85378; 85610; 85730; 96361; 96374; 99285; J1885; J7040; Q9967